=== PATIENT | female | born 1985 | race Caucasian/White ===

== ENCOUNTER 2024-02-10 10:04 | Emergency (ER) | payer OTHER ==
[~2024-02-10] VITALS: Ht 170.2 cm; Wt 83.3 kg
[2024-02-10 11:01] LABS: Basophils # (auto) 0.1 10 ^3/uL (0-0.2); Basophils % (auto) 0.5 % (0.0-2.0); Eosinophils # (auto) 0 10 ^3/uL (0-0.8); Eosinophils % (auto) 0.5 % (0.0-7.0); Hematocrit 45.8 % (36.0-46.0); Hemoglobin 15.6 g/dL (12.2-16.2); Lymphocytes # (auto) 1.5 10 ^3/uL (0.4-5.4); Lymphocytes % (auto) 15.6 % (10.0-50.0); Mean Corpuscular Hemoglobin 31.2 pg (28.0-32.0); Mean Corpuscular Hgb Conc. 34.1 g/dL (32.0-36.0); Mean Corpuscular Volume 91.5 fL (80.0-100.0); Monocytes # (auto) 0.7 10 ^3/uL (0-1.3); Monocytes % (auto) 7.5 % (0.0-12.0); Neutrophils # (auto) 7.3 10 ^3/uL (1.6-8.6); Neutrophils % (auto) 75.9 % (37.0-80.0); Red Blood Cells 5.01 10^6/uL (4.0-5.20); Red Cell Distribution Width 12.8 % (11.8-14.3); White Blood Cell 9.7 10^3/uL (4.4-10.8)
[2024-02-10 11:12] LABS: Alanine Aminotransferase 22 U/L (7-40); Albumin 4.8 g/dL (3.2-4.8); Alkaline Phosphatase 106 U/L (46-116); Anion Gap 5 (5-15); Aspartate Aminotransferase 21 U/L (13-40); BUN/Creatinine Ratio 11.5 (10.0-20.0); Blood Urea Nitrogen 10 mg/dL (9-23); Calcium 11.9 mg/dL (8.7-10.4); Carbon Dioxide 29 mmol/L (20-30); Chloride 107 mmol/L (98-107); Glucose 94 mg/dL (74-106); Magnesium 2.2 mg/dL (1.6-2.6); Potassium 3.5 mmol/L (3.5-5.1); Sodium 141 mmol/L (136-145)
[2024-02-10 11:13] LABS: Bilirubin, Total 0.6 mg/dL (0.2-1.0); Total Protein 7.7 g/dL (5.7-8.2)
[2024-02-10 11:34] VITALS: O2SAT 98
[2024-02-10 11:37] VITALS: PULSE 92; O2SAT 98
[2024-02-10 11:46] LABS: Urine Bacteria None Seen /hpf (None Seen)
[2024-02-10] MEDS: LABETALOL HCL 20 MG/4 ML VL IV ONE ×3 (12:03→15:58)
[2024-02-10] MEDS: SODIUM CHLORIDE 0.9% 1,000 ML IV ONE (12:04)
[2024-02-10 12:14] LABS: Urine Blood 1+ /uL (Negative); Urine Clarity Clear (Clear); Urine Color Yellow (Yellow); Urine Mucus FEW (None Seen); Urine Protein, UAD 1+ (Negative); Urine Specific Gravity 1.018 (1.001-1.035); Urine Urobilinogen Normal (Negative); Urine WBC 9 /hpf (0 - 5); Urine pH 5.5 (5.0-9.0)
[2024-02-10 12:28] LABS: Amphetamine Screen, Urine Neg (NEGATIVE)
[2024-02-10 12:29] LABS: Barbiturate Scree,Urine Neg (NEGATIVE); Benzodiazephine Screen, Urine Neg (NEGATIVE); Cocaine Screen, Urine Neg (NEGATIVE); Opiate Scree,Urine Neg (NEGATIVE)
[2024-02-10 12:30] LABS: Cannabinoid Screen, Urine Neg (NEGATIVE); Phencyclidine Screen, Urine Neg (NEGATIVE)
[2024-02-10 15:47] VITALS: TEMP 98.9
[2024-02-10 16:07] VITALS: O2SAT 98
[2024-02-10 16:46] VITALS: BP 159/96; PULSE 95; RESP 18
[2024-02-10] MEDS ORDERED: ATEN-60 PO (17:11)
== END 2024-02-10 17:39 | disposition home or self-care (01) ==
LOC: ER 10:10
DX: D25.9 Leiomyoma of uterus, unspecified (principal); R10.2 Pelvic and perineal pain; N93.8 Other specified abnormal uterine and vaginal bleeding; I10 Essential (primary) hypertension; Z79.899 Other long term (current) drug therapy
CPT/HCPCS: 36415; 71045; 76830; 76856; 80053; 80307; 81001; 81025; 82962; 83605; 83735; 84443; 84484; 84702; 85025; 85379; 86850; 86900; 86901; 93005; 96361; 96374; 96376; 99285; J7030